=== PATIENT | male | born 1980 | race Caucasian/White ===

== ENCOUNTER 2024-07-31 17:06 | Emergency (ER) | payer BC ==
[2024-07-31] MEDS: Diphtheria,Pertussis(Acell),Tetanus Vaccine 0.5 ML Syringe IM ONE (18:03)
[2024-07-31] MEDS: Lidocaine 1% 5 ML VIAL INJECT ONE (18:30)
== END 2024-07-31 18:34 | disposition home or self-care (01) ==
LOC: MW.ED 17:06
DX: S61.011A Laceration without foreign body of right thumb without damage to nail, initial encounter (principal); Z75.3 Unavailability and inaccessibility of health-care facilities; Z23 Encounter for immunization; W26.8XXA Contact with other sharp object(s), not elsewhere classified, initial encounter; Y93.89 Activity, other specified
CPT/HCPCS: 12001; 90471; 99282-25; 99283